=== PATIENT | male | born 1970 | race Caucasian/White ===

== ENCOUNTER 2017-07-19 15:29 | Emergency (ER) | payer BC, OTHER ==
[~2017-07-19] VITALS: Ht 172.7 cm; Wt 68.0 kg
[2017-07-19 15:38] VITALS: BP 134/73
[2017-07-19] MEDS ORDERED: ALPRAZOLAM (15:38)
== END 2017-07-19 18:30 | disposition left against medical advice (07) ==
LOC: ER 16:00
DX: Z53.21 Procedure and treatment not carried out due to patient leaving prior to being seen by health care provider (principal)